=== PATIENT | female | born 1980 | race African-American/Black ===

== ENCOUNTER 2021-09-10 09:15 | Emergency (ER) | payer OTHER ==
[~2021-09-10] VITALS: Ht 172.7 cm; Wt 87.0 kg
[~2021-09-10 09:15] MED LIST: LEVO500T90 MT
[2021-09-10 09:20] VITALS: BP 166/99
[2021-09-10] MEDS ORDERED: BACITRACIN ZINC OINT UDPKT TOP ONE (09:45)
[2021-09-10] MEDS ORDERED: TETANUS, DIPHTHERIA, PERTUSSIS VAC/PF 0.5ML (>10YR OLD) IM ONE (09:45)
== END 2021-09-10 10:30 | disposition home or self-care (01) ==
LOC: ER 09:15
DX: S01.01XA Laceration without foreign body of scalp, initial encounter (principal); Z98.890 Other specified postprocedural states; Z88.0 Allergy status to penicillin; W18.30XA Fall on same level, unspecified, initial encounter; Y93.89 Activity, other specified; Y92.89 Other specified places as the place of occurrence of the external cause; Y99.8 Other external cause status
CPT/HCPCS: 12001; 90471; 90715; 99283

== ENCOUNTER 2021-09-25 12:24 | Emergency (ER) | payer OTHER ==
[~2021-09-25] VITALS: Ht 172.7 cm; Wt 89.0 kg
[2021-09-25 12:42] VITALS: BP 135/85
== END 2021-09-25 14:23 | disposition home or self-care (01) ==
LOC: ER 12:24
DX: Z48.00 Encounter for change or removal of nonsurgical wound dressing (principal); Z88.0 Allergy status to penicillin; Z90.710 Acquired absence of both cervix and uterus; Z98.890 Other specified postprocedural states
CPT/HCPCS: 99281

== ENCOUNTER 2023-10-19 10:29 | Emergency (ER) | payer MEDICAID, OTHER ==
[~2023-10-19] VITALS: Ht 172.7 cm; Wt 88.0 kg
[~2023-10-19 10:29] MED LIST changes: +LEVO-65 MT; -LEVO500T90 MT
[2023-10-19 10:52] VITALS: O2SAT 97
[2023-10-19 12:45] VITALS: PULSE 68; RESP 12
[2023-10-19] MEDS: IPRATROPIUM/ALBUTEROL 0.5-3(2.5)MG/3ML NEB HHN ONE (12:45)
[2023-10-19] MEDS ORDERED: NIRM1TAB6 PO (14:58)
[2023-10-19] MEDS ORDERED: GUAI200T5 MT (14:58)
[2023-10-19] MEDS ORDERED: ALBU6.7H15 INH (14:58)
[2023-10-19 15:16] VITALS: BP 144/83; PULSE 70; RESP 16; TEMP 37.05852; O2SAT 97
== END 2023-10-19 15:17 | disposition home or self-care (01) ==
LOC: ER 10:29
DX: U07.1 COVID-19 (principal); B34.9 Viral infection, unspecified; Z98.890 Other specified postprocedural states; Z90.710 Acquired absence of both cervix and uterus; Z88.0 Allergy status to penicillin
CPT/HCPCS: 87804 ×2; 71045; 99284; 87426; Z7610

== ENCOUNTER 2024-08-05 07:54 | Emergency (ER) | payer MEDICAID, OTHER ==
[~2024-08-05] VITALS: Ht 172.7 cm; Wt 86.0 kg
[~2024-08-05 07:54] MED LIST changes: +ALBU6.7H15 INH; +GUAI200T5 MT; +NIRM1TAB6 PO
[2024-08-05 07:55] VITALS: O2SAT 100
[2024-08-05 08:42] LABS: BASOPHILS % 0.8 % (0.0-2.0); EOSINOPHILS % 3.9 % (0.0-5.0); HEMATOCRIT. 39.6 % (36.0-48.0); HEMOGLOBIN. 13.7 g/dL (12.0-16.0); LYMPHOCYTES % 28.7 % (20.0-50.0); MEAN CORPUSCULAR HEMOGLOBIN 33.5 pg (28.0-32.0); MEAN CORPUSCULAR HGB CONC 34.6 g/dL (31.0-37.0); MEAN PLATELET VOLUME 7.4 fl (7.4-10.4); MONOCYTES % 7.6 % (2.0-8.0); PLATELET 418 x1000/uL (130-400); RED BLOOD CELL COUNT 4.08 mill/uL (4.2-5.4); WHITE BLOOD COUNT 5.2 x1000/uL (4.5-11.0)
[2024-08-05 08:49] LABS: CHLORIDE 107 mEq/L (98-107); POTASSIUM 3.6 mEq/L (3.5-5.1); SODIUM 139 mEq/L (136-145)
[2024-08-05 08:50] LABS: CARBON DIOXIDE 24 mEq/L (21-32)
[2024-08-05 08:51] LABS: CALCIUM 9.3 mg/dL (8.7-10.4)
[2024-08-05] MEDS: MORPHINE SULFATE 4 MG/ML INJ (FOR IV/IM USE) IV STA (08:52)
[2024-08-05] MEDS: LIDOCAINE 5% PATCH TOP ONE (08:53)
[2024-08-05 08:55] LABS: CREATININE 0.8 mg/dL (0.6-1.0); GLUCOSE 135 mg/dL (70-105)
[2024-08-05 08:56] LABS: UREA NITROGEN BLOOD 15 mg/dL (9-23)
[2024-08-05 08:58] LABS: INR 0.9; TROPONIN I HIGH SENSITIVITY < 4 ng/L (3.0-34)
[2024-08-05 09:07] LABS: HCG SCREEN NEGATIVE
[2024-08-05] MEDS ORDERED: KETOROLAC 30MG/ML VIAL IV PRN (12:30)
[2024-08-05] MEDS ORDERED: HYDROCODONE/ACETAMINOPHEN 5/325MG TABLET PO PRN (12:30)
[2024-08-05] MEDS ORDERED: ONDANSETRON HCL 4MG/2ML INJ IV PRN (12:30)
[2024-08-05] MEDS ORDERED: NALOXONE HCL 0.4MG/ML VIAL IV PRN (12:45)
[2024-08-05 13:56] VITALS: BP 128/89; PULSE 94; RESP 20; TEMP 36.9; O2SAT 97
== END 2024-08-05 14:48 | disposition short-term general hospital (02) ==
LOC: ER 07:54 → CANBEDREQ 11:49 → ER 14:48
DX: S22.32XA Fracture of one rib, left side, initial encounter for closed fracture (principal); S00.511A Abrasion of lip, initial encounter; R06.02 Shortness of breath; I10 Essential (primary) hypertension; Z88.0 Allergy status to penicillin; Z79.899 Other long term (current) drug therapy; Y04.0XXA Assault by unarmed brawl or fight, initial encounter; Y93.89 Activity, other specified; Y92.89 Other specified places as the place of occurrence of the external cause; Y99.8 Other external cause status
CPT/HCPCS: 80048; 84703; 83880; 85025; 85610; 86850; 86900; 86901; 84484; 36415; 71250; 93005; 96374; 99285; J2270; Z7610 ×4; A4606

== ENCOUNTER 2024-10-03 07:13 | Emergency (ER) | payer MEDICAID ==
[~2024-10-03] VITALS: Ht 172.7 cm; Wt 88.0 kg
[2024-10-03 07:29] VITALS: O2SAT 98
[2024-10-03] MEDS ORDERED: CLIN-116 PO (07:54)
[2024-10-03 08:11] VITALS: BP 135/87; PULSE 82; RESP 16; TEMP 36.8; O2SAT 98
== END 2024-10-03 08:10 | disposition home or self-care (01) ==
LOC: ER 07:14
DX: L03.90 Cellulitis, unspecified (principal); I10 Essential (primary) hypertension; Z79.899 Other long term (current) drug therapy; F12.90 Cannabis use, unspecified, uncomplicated; Z88.0 Allergy status to penicillin
CPT/HCPCS: 99283